=== PATIENT | male | born 1970 | race Caucasian/White ===

== ENCOUNTER 2018-05-09 10:34 | Emergency (ER) | payer BC ==
[2018-05-09] MEDS ORDERED: Ketorolac Tromethamine 60 MG/2 ML VIAL ONE (11:20)
[2018-05-09] MEDS ORDERED: Morphine 4 MG/ML Carpuject ONE ×2 (11:20→13:15)
[2018-05-09] MEDS ORDERED: Morphine 4 MG/ML VIAL ONE (13:14)
--- NOTE | 2018-05-09 14:09 | CT ---
CT THORACIC SPINE: Multiple axial tomograms are obtained through the thoracic spine with multiplanar reconstruction. INDICATION: Thoracic spine pain. FINDINGS: Thoracic vertebrae maintain normal height and alignment. There is no evidence of compression deformi ty. There is no evidence of fracture. Spondylitic change in the lower cervical spine C6, C7, and T1 levels impinge on the anterior cord. No evidence of disk protrusion in the thoracic spine. No central canal stenosis. IMPRESSION: 1. Spondylosis in the lower cervical spine impinge on the cord. 2. Thoracic spine unremarkable. No fracture or acute abnormality identified. POS: [facility]
== END 2018-05-09 12:29 | disposition home or self-care (01) ==
LOC: SCSER 10:34
DX: M54.6 Pain in thoracic spine (principal); J45.909 Unspecified asthma, uncomplicated
CPT/HCPCS: 72128; 96372; J1885; J2270

== ENCOUNTER 2018-05-20 08:16 | Outpatient (CLI) | payer BC ==
--- NOTE | 2018-05-20 09:57 | MRI ---
MRI CERVICAL SPINE NONCONTRAST: DATE: 05-20-18 HISTORY: 47-year-old male with cervical radiculopathy, M54.12. Comparison: None. FINDINGS: No Chiari I malformation. Cervical spinal cord is normal in size and signal, with no syrinx. Alignmen t is normal. Vertebral body heights are maintained. Disc desiccation at all levels from C2-3 through C6-7. Mild disc space narrowing at C6-7. No severe disc space narrowing at any level. Moderate bilate ral degenerative facet changes at C7-T1. All other facet joints demonstrate no major DJD. No major jefry ne marrow signal abnormality. C1-2: No central stenosis. C2-3: No central or neural foraminal stenosis. C3-4: No central or neural foraminal stenosis. C4-5: Mild broad based disc/osteophytic bar complex slightly indents the ventral aspect of the spinal canal and thecal sac. Developmentally short pedicles. Together, these factors result in moderate yamile tral spinal canal stenosis. No high grade neural foraminal stenosis. C5-6: Broad based disc/osteophytic bar complex, asymmetrically larger at the right paracentral aspect compared to the left. Developmentally short pedicles. Moderate to severe central spinal canal stenos is with slight indentation of the right anterior aspect of the spinal cord by the right paracentral c omponent of disc protrusion or disc/osteophyte complex. Small bilateral uncinate process osteophytes. Moderate right neural foraminal stenosis. Mild left neural foraminal stenosis. C6-7: Broad based central and bilateral paracentral disc/osteophytic bar complex broadly abuts and mi nimally indents the ventral surface of the spinal cord, causing moderate to severe central spinal can al stenosis. Moderate sized bilateral uncinate process osteophytes result in moderate bilateral neura l foraminal stenosis. C7-T1: No central stenosis. Mild to moderate right neural foraminal stenosis. No significant left keyona roforaminal stenosis. IMPRESSION: 1. Overall predominately mild cervical spondylosis, with mild and moderate degenerative disc changes of the mid and lower levels, and moderate facet osteoarthrosis isolated to the C7-T1 level. 2. Central spinal canal stenosis at C4-5, C5-6, and C6-7. 3. Neural foraminal stenosis at lower levels. POS: [facility]
--- NOTE | 2018-05-20 10:40 | RAD ---
CERVICAL SPINE FOUR VIEW SERIES: INDICATIONS: Cervical radiculopathy. FINDINGS: Four lateral views are submitted without frontal projections, limiting assessment in this regard. Al ignment on the neutral view is evaluated to the mid C7 level. The C7-T1 level is not reliably assess ed. There is no evidence of subluxation. Flexion and extension views reveal no significant translat ional motion. There is mild multilevel degenerative change. IMPRESSION: No significant subluxation or translational motion. POS: [facility]
== END 2018-05-20 08:17 | disposition home or self-care (01) ==
LOC: BICMRI 08:16
PROVIDERS: ATTEND Neurological Surgery
DX: M47.22 Other spondylosis with radiculopathy, cervical region (principal); M50.123 Cervical disc disorder at C6-C7 level with radiculopathy; M48.02 Spinal stenosis, cervical region
CPT/HCPCS: 72040; 72141

== ENCOUNTER 2018-05-30 13:55 | Outpatient (CLI) | payer BC ==
[2018-05-30 15:12] LABS: Hemoglobin 16.1 g/dL (14.0-18.0); Mean Corpuscular HGB CONC 35.1 g/dL (32.0-36.0); Mean Corpuscular Hemoglobin 31.6 pg (27.0-31.0); Mean Corpuscular Volume 90.1 fL (78.0-98.0); Mean Platelet Volume 6.9 fL (7.4-10.4); Platelet Count 366 thou/uL (130-400); RBC Distribution Width 11.5 % (11.5-14.5); Red Blood Cell (RBC) Count 5.07 mill/uL (4.70-6.10); White Blood Cell (WBC) Count 7.1 thou/uL (4.8-10.8)
[2018-05-30 15:16] LABS: INR-International Normal Ratio 1.1; Prothrombin Time 13.9 SEC (12.0-14.7)
== END 2018-05-30 13:56 | disposition home or self-care (01) ==
LOC: LABBT 13:55
PROVIDERS: ATTEND Neurological Surgery
DX: Z01.812 Encounter for preprocedural laboratory examination (principal); M50.222 Other cervical disc displacement at C5-C6 level
CPT/HCPCS: 85027; 85610; 85730

== ENCOUNTER 2018-06-05 05:47 | Day surgery (SDC) | payer BC ==
[2018-05-30 14:12] VITALS: BMI 33.5
--- NOTE | 2018-06-04 07:02 | HP ---
HISTORY OF PRESENT ILLNESS: This is a 47-year-old male who reports to our office for evaluation of neck and right arm pain. He states that she had a "crick in his neck" for about two weeks and then one morning he woke up with really bad pain. He states that the pain is in the right side of his neck behind his shoulder blade. It goes down the back of his arm to his thumb and posterior pointer finger. He states that the pain is a burning and tingling and there is numbness in the thumb. He states the pain is worse while driving. He has seen a chiropractor and got massages with little benefit. He has tried prednisone and Toradol without much benefit as well. The patient does not have any imaging at this time. REVIEW OF SYSTEMS: A 10-point review of systems has been completed and is negative other than stated in the above HPI. PAST MEDICAL HISTORY: Allergies and asthma. 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 FAMILY HISTORY: Father is alive, diagnosed with heart disease. Mother is alive. Children are alive. SOCIAL HISTORY: The patient is a smoker. Does not drink alcohol or use any other illicit drugs. The patient states that he is sexually active. MEDICATIONS: Montelukast sodium, Breo Ellipta and ibuprofen. ALLERGIES: NO KNOWN DRUG ALLERGIES. PHYSICAL EXAMINATION: CONSTITUTIONAL: The patient is alert and oriented, does not appear to be in any visible distress. HEENT: Head is normocephalic, atraumatic. Pupils are equal, round, and reactive to light. Extraocular movements are intact. Hearing is intact. Moist mucous membranes. NECK: Normal, soft, supple. No masses are noted. Range of motion is intact. Tenderness posterior. NEUROLOGIC: Awake, alert, and oriented x3. Memory, attention, fund of knowledge, and language are spontaneous and normal. Cranial nerves 2 through 12 are intact. Upper extremities 5/5 bilateral strength in deltoids, biceps, wrist extension, finger extension, finger intrinsics, 4/5 right triceps weakness. Sensation equal bilaterally. Reflexes symmetric. ASSESSMENT AND PLAN: Dr. Echevarria has offered surgery for cervical radiculopathy. Dr. Echevarria has offered an ACDF C5 through C7 and has gotten consent. The patient states he understands the risks and is willing to proceed with surgery. Job ID: [id number]
[2018-06-05] MEDS ORDERED: Thrombin 5000 UNITS/5 ML VIAL ONE (06:17)
[2018-06-05] MEDS ORDERED: Sodium Chloride 0.9% 10 ML ONE (06:17)
[2018-06-05] MEDS ORDERED: CEFAZOLIN 2 GM/50 ML BAG ONE (06:20)
[2018-06-05] MEDS ORDERED: Fentanyl 100 MCG/2 ML VIAL ONE ×2 (06:21→11:01)
[2018-06-05] MEDS ORDERED: Albuterol Sulfate HFA (OR ONLY) ONE (06:58)
[2018-06-05] MEDS ORDERED: PHENYLEPHRINE-NS 100 MCG/ML 10 ML SYRINGE ONE ×2 (08:59→16:48)
--- NOTE | 2018-06-05 12:53 | OP ---
DATE OF PROCEDURE: 06/05/2018 [employer] COORDINATOR: Viviana Gonzales PA-C. PREOPERATIVE INDICATION: Treat pain and prevent neurological deterioration. PREOPERATIVE DIAGNOSES: Intervertebral disk herniation, C5-C6 and C6-C7 with right-sided C6 and C7 radiculopathies. POSTOPERATIVE DIAGNOSES: Intervertebral disk herniation, C5-C6 and C6-C7 with right-sided C6 and C7 radiculopathies. PROCEDURE PERFORMED: Anterior cervical diskectomy, intervertebral arthrodesis, placement of intervertebral biomechanical device, local morcellized autograft, morcellized allograft, and anterior cervical plating, C5-C6 and C6-C7, operating microscope. PREOPERATIVE MEDICATIONS: Ancef 2 g IV. DRAINS: Zero. DRAIN TYPE: None. DESCRIPTION OF PROCEDURE: The patient was brought to the operating room. General endotracheal anesthesia was induced. The patient was carefully positioned on the operating table with his head supported by a donut-shaped headrest. A lateral fluoro-radiograph was used to plan our incision. The right side of the neck was sterilely prepped and draped. We opened our incision with a 10-blade knife and controlled bleeding with bipolar cautery. We dissected sharply to the platysma and we cut this muscle in line with our incision. We continued our dissection medial to the sternocleidomastoid and lateral to the trachea and esophagus until we arrived at the prevertebral space. We placed a marker at C4-C5 and took a lateral fluoro-radiograph to confirm the levels upon which we were operating. We then elevated the longus colli muscles off the anterior surface of C5, C6, and C7, and placed a self-retaining lateral retractor beneath these muscles. Distraction pins were placed at C5 and C7, and we distracted across both of the intervening interspaces. We incised the interspaces with a 15-blade knife and removed disk contents using curettes and rongeurs. As we approached the posterior longitudinal ligament, the operating microscope was brought into the field. Under microscopic magnification and using microsurgical techniques, we removed the remainder of the intervertebral disk. We accessed the ventral epidural space with a microcurette and then using Kerrison rongeurs, we removed posterior osteophytes and posterior longitudinal ligament from one neural foramen all the way to the other across the entire interspace. We decompressed the left foramina, the right foramina, and the canal at C5-C6 and again at C6-C7. With the decompression secured, we turned our attention to arthrodesis. Using curette, we prepared the endplates for grafting. We brought a bone rasp into the field to measure the height of the interspaces. Each wound measured 7 mm. Two separate 7 mm PEEK intervertebral grafts were brought into the field. Posterior and anterior osteophytes were removed during decompression, were cleaned of soft tissue attachments, and morcellized. The morselized bone was added to demineralized bone matrix as our fusion substrate. The substrate was packed inside each of the 7 mm peek grafts and these grafts were advanced into their respective interspaces under radiographic guidance to the appropriate depth. Distraction pins were removed and the operative microscope was taken out of the field. A 31-mm anterior cervical plate was brought into the field. We drilled pilot safety inspector holes through the plate into the vertebral bodies of C5, C6, and C7, and we affixed the plate using 14 mm screws. Fixed angle screws were used at C7 and variable angle screws at C5 and C6. We engaged the locking mechanism over each of the six screws. AP and lateral fluoro-radiographs confirmed adequate positioning of our instrumentation. We irrigated copiously with bacitracin irrigation and we closed the wound in anatomical layers. We applied a sterile dressing. This was a clean case, no contamination. Job ID: [id number]
[2018-06-05] MEDS ORDERED: CEFAZOLIN 1 GM VIAL ONE (14:27)
[2018-06-05] MEDS ORDERED: Sodium Chloride 0.9% 100 ML ONE (14:28)
[2018-06-05] MEDS ORDERED: Dexamethasone 20 MG/5 ML VIAL ONE (16:48)
[2018-06-05] MEDS ORDERED: PROPOFOL 200 MG/20 ML VIAL ONE (16:48)
[2018-06-05] MEDS ORDERED: Esmolol 100 MG/10 ML VIAL ONE (16:48)
[2018-06-05] MEDS ORDERED: Lidocaine 1% PF 5 ML VIAL ONE (16:48)
[2018-06-05] MEDS ORDERED: Ondansetron PF 4 MG/2 ML Vial ONE (16:48)
[2018-06-05] MEDS ORDERED: Glycopyrrolate 0.2 MG/ML 5 ML SYRINGE ONE (16:48)
== END 2018-06-05 15:58 | disposition home or self-care (01) ==
LOC: SDC 05:47
PROVIDERS: ATTEND Neurological Surgery
PROC: 0RG2070 Fusion of 2 or more Cervical Vertebral Joints with Autologous Tissue Substitute, Anterior Approach, Anterior Column, Open Approach (ICD-10-PCS; principal; 2018-06-05)
PROC: 0RG20A0 Fusion of 2 or more Cervical Vertebral Joints with Interbody Fusion Device, Anterior Approach, Anterior Column, Open Approach (ICD-10-PCS; principal; 2018-06-05)
DX: M50.122 Cervical disc disorder at C5-C6 level with radiculopathy (principal); J45.909 Unspecified asthma, uncomplicated; F17.200 Nicotine dependence, unspecified, uncomplicated; Z79.51 Long term (current) use of inhaled steroids; Z79.899 Other long term (current) drug therapy; Z98.890 Other specified postprocedural states
CPT/HCPCS: 76001; 96374; C1713; C1776; J0131; J0690; J1100; J2001; J2405; J2704; J3010; J3490; J7050; L0174

== ENCOUNTER 2018-08-07 08:46 | Outpatient (CLI) | payer BC ==
--- NOTE | 2018-08-07 09:19 | RAD ---
CERVICAL SPINE THREE VIEWS: Indication: Cervical radiculopathy. Comparison: 05-20-18 FINDINGS: Anterior fusion procedure since prior exam. Anterior plate and screws now noted transfixing C5, C6, a nd C7. Interbody implants at these levels. Posterior alignment is maintained. Disc spaces are otherwi se preserved. Mild degenerative changes are present. Spondylosis is noted at C4-5. IMPRESSION: Post-operative changes noted since prior study. POS: [facility]
== END 2018-08-07 08:47 | disposition home or self-care (01) ==
LOC: TBSIIMAG 08:46
PROVIDERS: ATTEND Neurological Surgery
DX: M50.10 Cervical disc disorder with radiculopathy, unspecified cervical region (principal); Z98.1 Arthrodesis status
CPT/HCPCS: 72040

== ENCOUNTER 2020-11-02 14:39 | Outpatient (CLI) | payer BC | END 2020-11-02 14:40 | disposition home or self-care (01) | LOC: SCSMRI 14:39 | PROVIDERS: ATTEND Orthopaedic Surgery | DX: M23.92 Unspecified internal derangement of left knee (principal); S83.242A Other tear of medial meniscus, current injury, left knee, initial encounter; M94.262 Chondromalacia, left knee; M71.22 Synovial cyst of popliteal space [Baker], left knee ==

== ENCOUNTER 2020-11-15 15:33 | Outpatient (CLI) | payer BC ==
[2020-11-15 18:23] LABS: Bilirubin Neg (Negative); Blood, Urine Negative (Negative); Glucose, Urine (Dipstick) Normal (Negative); Ketone, Urine Negative (Negative); Leukocyte Negative (Negative); Nitrite Negative (Negative); Protein, Urine (Dipstick) Negative (Neg-Trace); Specific Gravity, Urine 1.015 (1.002-1.036); Urobilinogen Normal mg/dL (Less than 2)
[2020-11-15 18:26] LABS: #Basophils 0.1 10x3/uL (0.0-0.2); #Eosinphils 0.9 10x3/uL (0.0-0.5); #Monocytes 0.6 10x3/uL (0.0-1.1); #Neutrophils 4.4 10x3/uL (1.5-8.4); %Basophils 0.7 % (0.0-2.0); %Lymphocytes 37.2 % (18.0-47.0); %Monocytes 6.7 % (0.0-10.0); Clarity Clear (Clear); Hemoglobin 14.7 g/dL (13.5-17.5); Mean Corpuscular HGB CONC 34.4 g/dL (32.0-36.0); Mean Corpuscular Hemoglobin 30.8 pg (27.0-33.0); Mean Corpuscular Volume 89.5 fl (81.2-95.1); Mean Platelet Volume 10.1 fl (7.4-10.4); Platelet Count 336 10x3/uL (150-450); RBC Distribution Width 12.6 % (11.5-14.5); Red Blood Cell (RBC) Count 4.77 10x6/uL (4.32-5.72); White Blood Cell (WBC) Count 9.6 10x3/uL (3.5-10.5)
[2020-11-15 18:32] LABS: Anion Gap 13 mmol/L (10-20); BUN (Urea Nitrogen) 14 mg/dL (8.9-20.6); Calc. Creatinine Clearance 0 mL/min (70-130); Calcium 9.6 mg/dL (7.8-10.44); Carbon Dioxide 27 mmol/L (22-29); Chloride 104 mmol/L (98-107); Glucose 96 mg/dL (70-105); Potassium 3.9 mmol/L (3.5-5.1); Sodium 140 mmol/L (136-145)
[2020-11-15 18:44] LABS: Bacteria/HPF None Seen HPF (None Seen); RBC/HPF None Seen HPF (0-3); Squamous Epithelial 0-3 HPF (0-3); WBC/HPF None Seen HPF (0-3)
[2020-11-16 09:46] LABS: SARS-CoV-2 NAA Rapid Test Not Detected (NotDetected)
== END 2020-11-15 15:34 | disposition home or self-care (01) ==
LOC: LABBT 15:33
PROVIDERS: ATTEND Orthopaedic Surgery
DX: Z01.818 Encounter for other preprocedural examination (principal); S83.242A Other tear of medial meniscus, current injury, left knee, initial encounter; Z20.822 Contact with and (suspected) exposure to COVID-19
CPT/HCPCS: 80048; 81001; 85025; 93005; 93010; U0002; U0005

== ENCOUNTER 2020-11-18 07:14 | Day surgery (SDC) | payer BC ==
[2020-11-16 14:00] VITALS: BMI 32.8
[2020-11-18] MEDS ORDERED: PROPOFOL 20 ML ONE (08:26)
[2020-11-18] MEDS ORDERED: Fentanyl 100 MCG/2 ML VIAL ONE (10:00)
[2020-11-18] MEDS ORDERED: Bupivacaine HCl 0.5%/Epinephrine 1:200,000/PF 30 ml Vial ONE (10:12)
[2020-11-18] MEDS ORDERED: Ketorolac Tromethamine 30 MG/ML VIAL ONE (10:12)
[2020-11-18] MEDS ORDERED: Ondansetron PF 4 MG/2 ML Vial ONE (10:12)
[2020-11-18] MEDS ORDERED: Dexamethasone 20 MG/5 ML VIAL ONE (10:12)
[2020-11-18] MEDS ORDERED: Lidocaine 2% w/Epinephrine 1:200K 20 ML VIAL ONE (10:12)
[2020-11-18] MEDS ORDERED: PROPOFOL 200 MG/20 ML VIAL ONE (10:12)
[2020-11-18] MEDS ORDERED: Lidocaine 1% PF 5 ML VIAL ONE (10:12)
[2020-11-18] MEDS ORDERED: Rocuronium Bromide 10 MG/ML (10ML VIAL) ONE (10:12)
[2020-11-18] MEDS ORDERED: SUGAMMADEX SODIUM 200 MG/2 ML VIAL ONE (10:51)
== END 2020-11-18 13:55 | disposition home or self-care (01) ==
LOC: SDC 07:14
PROVIDERS: ATTEND Orthopaedic Surgery
PROC: 0SBD4ZZ Excision of Left Knee Joint, Percutaneous Endoscopic Approach (ICD-10-PCS; principal; 2020-11-18)
DX: S83.232A Complex tear of medial meniscus, current injury, left knee, initial encounter (principal); M94.262 Chondromalacia, left knee; J45.909 Unspecified asthma, uncomplicated; G47.33 Obstructive sleep apnea (adult) (pediatric); F17.220 Nicotine dependence, chewing tobacco, uncomplicated; Z79.899 Other long term (current) drug therapy; Z86.16 Personal history of COVID-19
CPT/HCPCS: J0690; J2704; J3010